=== PATIENT | male | born 1990 | race Caucasian/White ===

== ENCOUNTER 2023-02-10 16:20 | Emergency (ER) | payer OTHER, SELFPAY ==
[2023-02-10 16:33] VITALS: BP 149/100; PULSE 99; RESP 20; TEMP 37.6; O2SAT 98; BMI 27.1
--- NOTE | 2023-02-10 16:52 | US_ITS ---
[facility] [id number] Patient Name: FLYNN CARPENTER MRN: [id number] date: 1990 Sex: M Assigned Patient Location: ER Current Patient Location: ER Accession/Order Number: [id number] Exam Date: 02/10/2023 19:00 Report Date: 02/10/2023 20:50 At the request of: KAYY PENNINGTON Procedure: US right upper quadrant EXAMINATION: US right upper quadrant TECHNIQUE: Limited ultrasound of the abdomen was performed. Grayscale and color flow Doppler imaging. HISTORY: abdominal pain. COMPARISON: None. FINDINGS: Liver: Diffuse increased echogenicity of liver suggesting steatosis. There is focal fatty sparing adjacent to gallbladder fossa. Normal hepatopedal flow within the portal veins. Gallbladder/biliary: Small amount of layering sludge within the gallbladder. There is no gallbladder wall thickening or pericholecystic fluid. The common extrahepatic duct diameter measures 3.8mm. There is no intra or extrahepatic biliary dilatation. There is no visualized obstructing biliary stone. Pancreas: The visualized portion of the pancreas demonstrates normal homogeneous echotexture. Right Kidney: Unremarkable with no mass lesion or hydronephrosis. Other findings: None US/US right upper quadrant IMPRESSION: No acute right upper quadrant pathology. Electronically authenticated by: BEATRIS TEJEDA Date: 02/10/2023 20:50
--- NOTE | 2023-02-10 16:54 | ED.ABDPAIN1 ---
HPI - Abdominal Pain General Chief Complaint: Abdominal Pain Stated Complaint: Abdominal Pain Time Seen by Provider: 02/10/23 16:31 Source: patient Mode of arrival: walk-in Limitations: no limitations History of Present Illness HPI narrative: Patient is a 32-year-old male who presents to the emergency department for the evaluation of upper abdominal pain that has been present for months. He states his pain has been minimal until the last several days when he had more severe pain, he states pain is worse with eating. He has had nausea but no vomiting or diarrhea. He denies fevers, chills, upper respiratory symptoms. No medications taken prior to arrival. No previous abdominal surgeries. He denies urinary symptoms. Related Data Previous Rx's Medication Instructions Recorded hyoscyamine sulfate 0.125 mg 0.125 mg PO Q6H PRN abdominal pain 02/10/23 tablet (Levsin) #12 tabs ketorolac 10 mg tablet 10 mg PO TID PRN pain #10 tabs 02/10/23 ondansetron 4 mg disintegrating 4 mg PO Q6H PRN nausea and 02/10/23 tablet vomiting #12 tabs Allergies Allergy/AdvReac Type Severity Reaction Status Date / Time No Known Drug Allergies Allergy Verified 02/10/23 16:36 Review of Systems ROS Constitutional Denies: fever or chills Ears, nose, mouth, and throat Denies: throat pain or nasal congestion Respiratory Denies: shortness of breath Gastrointestinal Reports: abdominal pain and nausea; Denies: vomiting or diarrhea Genitourinary Denies: painful urination Musculoskeletal Denies: back pain Integumentary/Breast Denies: rash Neurological Denies: headache PFSH PFSH Social History Smoking status: Former smoker Exam Narrative Exam Narrative: Gen.: Awake, alert, in no distress Head: Normocephalic, atraumatic ENT: Moist mucous membranes Respiratory: No respiratory distress, lungs clear bilaterally Cardio: Regular rate and rhythm Gastrointestinal: Abdomen is soft, nondistended and tender in the right upper quadrant with no guarding or rebound Extremities: Moves extremities equally Psych: Normal mood and affect Neuro: No focal neuro deficit Skin: Warm, dry, intact Constitutional Vital Signs, click to edit/add: Last Vital Signs Temp 99.7 F 02/10/23 16:33 Pulse 95 H 02/10/23 20:08 Resp 18 02/10/23 20:08 BP 138/96 H 02/10/23 20:08 Pulse Ox 97 02/10/23 20:08 O2 Del Method Room Air 02/10/23 20:08 Course Vital Signs Vital signs: Vital Signs Temperature 99.7 F 02/10/23 16:33 Pulse Rate 99 H 02/10/23 16:33 Respiratory Rate 20 02/10/23 16:33 Blood Pressure 149/100 H 02/10/23 16:33 Pulse Oximetry 98 02/10/23 16:33 Oxygen Delivery Method Room Air 02/10/23 16:33 Temperature 99.7 F 02/10/23 16:33 Pulse Rate 95 H 02/10/23 20:08 Respiratory Rate 18 02/10/23 20:08 Blood Pressure 138/96 H 02/10/23 20:08 Pulse Oximetry 97 02/10/23 20:08 Oxygen Delivery Method Room Air 02/10/23 20:08 MDM - Abdominal Pain MDM Narrative Medical decision making narrative: Lab studies show mild elevation of LFTs and bilirubin. An ultrasound of the right upper quadrant shows gallbladder sludge with no other evidence of acute process. Patient will be referred to general surgery and treated for biliary colic, he is discharged home with a short course of Toradol, Levsin, Zofran. Follow-up with general surgery and return to the ER if symptoms change or worsen. Abdomen is soft and benign on recheck by attending physician at discharge. Medical Records Attestation: I reviewed the patient's medical records. Lab Data Attestation: I reviewed the patient's lab results. Labs: Lab Results 02/10/23 02/10/23 02/10/23 Range/Units 16:40 16:45 16:48 WBC 9.5 (4.0-11.0) 10^3/uL RBC 4.87 (4.70-6.10) 10^6/uL Hgb 15.8 (14.0-18.0) g/dL Hct 46.4 (42.0-54.0) % MCV 95.3 H (80.0-94.0) fL MCH 32.4 (25.9-34.0) pg MCHC 34.1 (29.9-35.2) g/dL RDW 13.0 (11.0-15.0) % Plt Count 335 (150-450) 10^3/uL MPV 9.3 L (9.5-13.5) fL Neut % (Auto) 63.5 (43.0-75.0) % Lymph % (Auto) 23.1 (20.5-60.0) % [place] % (Auto) 12.5 H (1.7-12.0) % Eos % (Auto) 0.4 L (0.9-7.0) % Baso % (Auto) 0.3 (0.2-2.0) % Neut # (Auto) 6.1 (1.4-6.5) 10^3/uL Lymph # (Auto) 2.2 (1.2-3.8) 10^3/uL [place] # (Auto) 1.2 H (0.3-0.8) 10^3/uL Eos # (Auto) 0.0 (0.0-0.7) 10^3/uL Baso # (Auto) 0.0 (0.0-0.1) 10^3/uL Abs Immat Gran (auto) 0.02 (0.00-0.03) 10^3/uL Imm/Tot Granulo (auto) 0.2 (0.0-0.5) % Sodium 135 L (136-145) mmol/L Potassium 3.3 L (3.5-5.1) mmol/L Chloride 96 L (98-107) mmol/L Carbon Dioxide 28.4 (21.0-32.0) mmol/L Anion Gap 13.9 BUN 16.0 (7.0-18.0) mg/dL Creatinine 1.30 (0.70-1.30) mg/dL Est GFR ( Amer) >60 (>=60) Est GFR (Non-Af Amer) >60 (>=60) BUN/Creatinine Ratio 12.3 Glucose 121 H (74-106) mg/dL Lactate 1.5 (0.4-2.0) mmol/L Calcium 10.0 (8.5-10.1) mg/dL Total Bilirubin 1.1 H (0.2-1.0) mg/dL Direct Bilirubin 0.3 H (0.0-0.2) mg/dL AST 30 (15-37) U/L ALT 67 H (16-63) U/L Alkaline Phosphatase 75 (46-116) U/L Total Protein 8.1 (6.4-8.2) g/dL Albumin 4.5 (3.4-5.0) g/dL Globulin 3.6 g/dL Albumin/Globulin Ratio 1.2 Lipase 39.0 (16.0-77.0) U/L Urine Color Yellow (YELLOW) Urine Clarity Clear (CLEAR) Urine pH 5.5 (5.0-9.0) Ur Specific [place] 1.025 (1.005-1.025) Urine Protein Negative (NEG/TRACE) mg/dL Urine Glucose (UA) Negative (NEGATIVE) mg/dL Urine Ketones 40 A (NEGATIVE) mg/dL Urine Occult Blood Trace-i (NEGATIVE) Urine Nitrite Negative (NEGATIVE) Urine Bilirubin Moderate A (NEGATIVE) Urine Urobilinogen 0.2 (0.2-1.0) EU/dL Ur Leukocyte Esterase Negative (NEGATIVE) Urine RBC 0-2 (0-2) #/HPF Urine WBC 0-2 A (NONE SEEN) #/HPF Ur Squamous Epith Cells Rare (NONE/RARE) #/LPF Urine Crystals None seen (None Seen) #/HPF Urine Bacteria None seen (NONE SEEN) #/HPF Urine Casts None seen (NONE SEEN) #/LPF Urine Mucus None seen (NONE SEEN) Ur Culture Indicated? No Imaging Data US - abdomen: Attestation: I have reviewed the pertinent imaging results. Radiologist's impression: Procedure: US right upper quadrant EXAMINATION: US right upper quadrant TECHNIQUE: Limited ultrasound of the abdomen was performed. Grayscale and color flow Doppler imaging. HISTORY: abdominal pain. COMPARISON: None. FINDINGS: Liver: Diffuse increased echogenicity of liver suggesting steatosis. There is focal fatty sparing adjacent to gallbladder fossa. Normal hepatopedal flow within the portal veins. Gallbladder/biliary: Small amount of layering sludge within the gallbladder. There is no gallbladder wall thickening or pericholecystic fluid. The common extrahepatic duct diameter measures 3.8mm. There is no intra or extrahepatic biliary dilatation. There is no visualized obstructing biliary stone. Pancreas: The visualized portion of the pancreas demonstrates normal homogeneous echotexture. Right Kidney: Unremarkable with no mass lesion or hydronephrosis. Other findings: None IMPRESSION: No acute right upper quadrant pathology. Electronically authenticated by: BEATRIS TEJEDA Date: 02/10/2023 20:50 Discharge Plan Discharge Chief Complaint: Abdominal Pain Clinical Impression: Gallbladder sludge, Abdominal pain, Biliary colic Patient Disposition: Home, Self-Care Time of Disposition Decision: 21:02 Condition: Good Prescriptions / Home Meds: New ketorolac 10 mg tablet 10 mg PO TID PRN (Reason: pain) Qty: 10 0RF hyoscyamine sulfate [Levsin] 0.125 mg tablet 0.125 mg PO Q6H PRN (Reason: abdominal pain) Qty: 12 0RF ondansetron 4 mg tablet,disintegrating 4 mg PO Q6H PRN (Reason: nausea and vomiting) Qty: 12 0RF Instructions: Biliary Colic (ED), Acute Abdominal Pain (ED) Stand Alone Forms: Portal Instructions Referrals: Marty Dolan MD [Physician] - 1 week Physician,Non-Staff, [Primary Care Provider] - 1 week
[2023-02-10 17:00] LABS: Basophils Percent Auto 0.3 % (0.2-2.0); Eosinophils Percent Auto 0.4 % (0.9-7.0); Hematocrit 46.4 % (42.0-54.0); Hemoglobin 15.8 g/dL (14.0-18.0); Immature Granulocytes Abs Auto 0.02 10^3/uL (0.00-0.03); Immature Granulocytes Pct Auto 0.2 % (0.0-0.5); Lymphocytes Absolute Auto 2.2 10^3/uL (1.2-3.8); Lymphocytes Percent Auto 23.1 % (20.5-60.0); Mean Corpuscular HGB Conc 34.1 g/dL (29.9-35.2); Mean Corpuscular Hemoglobin 32.4 pg (25.9-34.0); Mean Corpuscular Volume 95.3 fL (80.0-94.0); Mean Platelet Volume 9.3 fL (9.5-13.5); Monocytes Absolute Auto 1.2 10^3/uL (0.3-0.8); Monocytes Percent Auto 12.5 % (1.7-12.0); Neutrophils Absolute Auto 6.1 10^3/uL (1.4-6.5); Neutrophils Percent Auto 63.5 % (43.0-75.0); Platelet Count 335 10^3/uL (150-450); Red Blood Count 4.87 10^6/uL (4.70-6.10); White Blood Count 9.5 10^3/uL (4.0-11.0)
[2023-02-10 17:07] LABS: Bilirubin Urine MODERATE (NEGATIVE); Blood Urine TRACE-I (NEGATIVE); Clarity Urine CLEAR (CLEAR); Color Urine YELLOW (YELLOW); Glucose Urine UA NEGATIVE (NEGATIVE); Ketones Urine 40 mg/dL (NEGATIVE); Leukocyte Esterase Urine NEGATIVE (NEGATIVE); Nitrite Urine NEGATIVE (NEGATIVE); Protein Urine NEGATIVE (NEG/TRACE); Specific Gravity Urine 1.025 (1.005-1.025); Urobilinogen Urine 0.2 EU/dL (0.2-1.0); pH Urine 5.5 (5.0-9.0)
[2023-02-10 17:09] LABS: Urine Microscopic Indicated YES
[2023-02-10 17:18] LABS: Alanine Aminotransferase 67 U/L (16-63); Albumin Globulin Ratio 1.2; Albumin Level 4.5 g/dL (3.4-5.0); Alkaline Phosphatase 75 U/L (46-116); Anion Gap 13.9; Aspartate Amino Transferase 30 U/L (15-37); BUN Creatinine Ratio 12.3; Bilirubin Total 1.1 mg/dL (0.2-1.0); Carbon Dioxide 28.4 mmol/L (21.0-32.0); Chloride 96 mmol/L (98-107); Estimated GFR (African America >60 (>=60); Estimated GFR (Non-African Ame >60 (>=60); Globulin 3.6 g/dL; Glucose 121 mg/dL (74-106); Potassium 3.3 mmol/L (3.5-5.1); Sodium 135 mmol/L (136-145); Total Protein 8.1 g/dL (6.4-8.2)
[2023-02-10 17:18] LABS: Bacteria Urine NONE SEEN #/HPF (NONE SEEN); Cast Seen? NONE SEEN #/LPF (NONE SEEN); Crystals Seen? None Seen #/HPF (None Seen); Mucus Urine NONE SEEN (NONE SEEN); RBC Urine 0-2 #/HPF (0-2); Squamous Epithelial Cell Urine RARE #/LPF (NONE/RARE); Urine Culture Indicated NO; WBC Urine 0-2 #/HPF (NONE SEEN)
[2023-02-10 17:21] LABS: Lactate/Lactic Acid 1.5 mmol/L (0.4-2.0)
[2023-02-10] MEDS: 0.9 % SODIUM CHLORIDE 1,000 ML 1000 ML IV (17:37)
[2023-02-10] MEDS: KETOROLAC TROMETHAMINE 30 MG/ML VIAL IVP (17:37)
[2023-02-10] MEDS: FAMOTIDINE/PF 20 MG/2 ML VIAL IV (17:38)
[2023-02-10] MEDS: ONDANSETRON PF 4 MG/2 ML VIAL IV (17:38)
[2023-02-10 17:53] LABS: Bilirubin Direct 0.3 mg/dL (0.0-0.2)
[2023-02-10 20:08] VITALS: BP 138/96; PULSE 95; RESP 18; O2SAT 97
== END 2023-02-10 21:10 | disposition home or self-care (01) ==
PROVIDERS: Physician Assistant; Emergency Provider Emergency Medicine
DX: R10.11 Right upper quadrant pain (principal); K80.50 Calculus of bile duct without cholangitis or cholecystitis without obstruction; Z87.891 Personal history of nicotine dependence; K82.8 Other specified diseases of gallbladder
CPT/HCPCS: 36415; 76705; 80053; 81001; 82248; 83605; 83690; 85025; 96374; 96375; 99285